=== PATIENT | female | born 1950 | race Caucasian/White ===

== ENCOUNTER → 2017-09-21 | Outpatient (CLI) | payer MEDICARE | END | disposition home or self-care (01) | LOC: PCVCCLINIC 13:11 | DX: R07.2 Precordial pain (principal); R06.02 Shortness of breath; R55 Syncope and collapse; R73.02 Impaired glucose tolerance (oral); M06.9 Rheumatoid arthritis, unspecified; F17.201 Nicotine dependence, unspecified, in remission | CPT/HCPCS: 93005; G0463 ==